=== PATIENT | male | born 2000 | race Caucasian/White ===

== ENCOUNTER 2018-10-06 19:06 | Emergency (ER) | payer OTHER ==
[~2018-10-06] VITALS: Ht 172.7 cm; Wt 100.0 kg
[2018-10-06] MEDS ORDERED: KETOROLAC 60MG/2ML VIAL IM ONE (20:15)
[2018-10-06 20:38] VITALS: BP 126/65
== END 2018-10-06 20:38 | disposition home or self-care (01) ==
LOC: ER 19:06
DX: S63.92XA Sprain of unspecified part of left wrist and hand, initial encounter (principal); S63.91XA Sprain of unspecified part of right wrist and hand, initial encounter; R07.89 Other chest pain; X50.0XXA Overexertion from strenuous movement or load, initial encounter; Y93.89 Activity, other specified; Y92.89 Other specified places as the place of occurrence of the external cause; Y99.8 Other external cause status
CPT/HCPCS: 96372; 99283; J1885

== ENCOUNTER 2019-01-18 18:23 | Emergency (ER) | payer MEDICAID, OTHER ==
[~2019-01-18] VITALS: Ht 172.7 cm; Wt 101.0 kg
[2019-01-18 18:30] VITALS: BP 153/87
== END 2019-01-18 19:20 | disposition home or self-care (01) ==
LOC: ER 18:23
DX: M25.512 Pain in left shoulder (principal); M54.2 Cervicalgia
CPT/HCPCS: 99283

== ENCOUNTER 2019-05-31 17:48 | Emergency (ER) | payer MEDICAID ==
[~2019-05-31] VITALS: Ht 172.7 cm; Wt 100.0 kg
[2019-05-31] MEDS ORDERED: ACETAMINOPHEN 500MG TABLET PO ONE (19:45)
[2019-05-31] MEDS ORDERED: IBUPROFEN 800MG TABLET PO ONE (19:45)
[2019-05-31 22:52] VITALS: BP 134/87
== END 2019-05-31 22:53 | disposition home or self-care (01) ==
LOC: ER 17:48
DX: T14.8XXA Other injury of unspecified body region, initial encounter (principal); M62.830 Muscle spasm of back; X58.XXXA Exposure to other specified factors, initial encounter; V99.XXXA Unspecified transport accident, initial encounter; Y93.89 Activity, other specified; Y92.89 Other specified places as the place of occurrence of the external cause; Y99.8 Other external cause status
CPT/HCPCS: 72040; 72100; 99284